=== PATIENT | female | born 1975 | race Hispanic/Latino ===

== ENCOUNTER 2021-09-21 20:21 | Inpatient (IN) | payer SELFPAY ==
[2021-09-21] MEDS ORDERED: Sodium Bicarb 50 MEQ/50 ML Abboject 8.4% SYRINGE ONE (20:32)
[2021-09-21] MEDS ORDERED: Calcium Chloride 1 GM/10 ML Abboject SYRINGE ONE ×2 (20:32→21:10)
[2021-09-21] MEDS ORDERED: EPINEPHrine 1 MG/10 ML Abboject SYRINGE ONE (20:32)
[2021-09-21 21:08] LABS: Actual Bicarbonate (HCO3a) 12.6 mEq/L (22-28); Analyzer IN Cardio ER; Base Excess (BEa) -18.1 mEq/L (-2.0 to +3.0); Calcium, Ionized (arterial) 1.26 mmol/L (1.12-1.30); Carboxyhemoglobin (COHb) 0.3 gm% (0.0-3.0); Potassium - ABG Lab 4.96 mmol/L (3.70-5.30)
[2021-09-21 21:09] LABS: pH, Arterial 6.92 (7.35-7.45)
[2021-09-21 21:10] LABS: CO2 Tension 62.6 mmHg (35.0-45.0); Hemoglobin (Hb) 5.2 g/dL (12.0-16.0); O2 Tension (PaO2), arterial 56.5 mmHg (80.0-100.0); Puncture Site RRA
[2021-09-21 21:12] LABS: Hemoglobin 4.8 g/dL (12.0-16.0); Mean Corpuscular Hemoglobin 26.8 pg (27.0-31.0); Mean Corpuscular Volume 92.6 fL (78.0-98.0); Mean Platelet Volume 7.3 fL (7.4-10.4); Platelet Count 451 thou/uL (130-400); RBC Distribution Width 14.4 % (11.5-14.5)
[2021-09-21] MEDS ORDERED: Sodium Bicarbonate 100 MEQ in Dextrose 5% in Water 1,000 ML IV SCH (21:15)
[2021-09-21 21:19] LABS: Prothrombin Time 44.2 sec (12.0-14.7)
[2021-09-21 21:20] LABS: PTT 74.6 sec (22.9-36.1)
[2021-09-21 21:21] LABS: INR-International Normal Ratio 4.6
[2021-09-21] MEDS ORDERED: Pantoprazole 40 MG VIAL ONE ×2 (21:24→23:38)
[2021-09-21] MEDS ORDERED: Cefepime 2 GM VIAL ONE (21:29)
[2021-09-21 21:31] LABS: Acetaminophen Less than 10.0 mcg/mL (10.0-30.0); Alcohol Less than 10 mg/dL (Less than 10); Lipase 26 U/L (8-78); Salicylate Less than 8.0 mg/dL (15.0-30.0)
[2021-09-21 21:32] LABS: ALT (SGPT) Less than 7 U/L (8-55); AST (SGOT) 22 U/L (5-34); Albumin 1.2 g/dL (3.5-5.0); Alkaline Phosphatase 132 U/L (40-110); Anion Gap 24 mmol/L (10-20); BUN (Urea Nitrogen) 26 mg/dL (7.0-18.7); Bilirubin, Total 0.2 mg/dL (0.2-1.2); Calc. Creatinine Clearance 0 mL/min (70-130); Calcium 7.6 mg/dL (7.8-10.44); Carbon Dioxide 13 mmol/L (22-29); Chloride 107 mmol/L (98-107); Globulin 2.8 g/dL (2.4-3.5); Glucose 123 mg/dL (70-105); Magnesium 3.2 mg/dL (1.6-2.6); Potassium 5.5 mmol/L (3.5-5.1); Sodium 138 mmol/L (136-145)
[2021-09-21 21:34] LABS: Band 33 % (5-11); Hypochromia SLIGHT = 6-15 cells (100X) (0-5/hpf); Lymphocytes 20 % (21-51); MDiff Complete? YES; Metamyelocyte 3 % (0-0); Monocytes 1 % (0-10); Myelocyte 3 % (0-0); Neutrophil 40 % (42-75); Nucleated RBC 3 % (0); Platelet Morphology Comment Appears Increased; Polychromasia MODERATE = 3-4 cells (100X) (0-2/hpf); Reflex for Review?? YES
[2021-09-21 21:37] LABS: BHCG - Serum Negative (NEGATIVE); Pregs Control Background? CLEAR/WHITE (CLR/WHITE); Pregs Control Bar Appear? YES (CONTROL BAR)
[2021-09-21 21:44] LABS: White Blood Cell (WBC) Count 40.4 thou/uL (4.8-10.8)
[2021-09-21 22:09] LABS: SARS-CoV-2 NAA Rapid Test Not Detected (NotDetected)
[2021-09-21] MEDS ORDERED: Dextrose 50% Abboject 50 ML SYRINGE SLOW IVP PRN (22:46)
[2021-09-21] MEDS ORDERED: HumaLOG 300 UNITS/3 ML VIAL SC PRN ×2 (22:46)
[2021-09-21] MEDS ORDERED: Dextrose 5% in Water 1,000 ML IV PRN (22:46)
[2021-09-21] MEDS ORDERED: Electrolyte Replacement Protocol 1 EACH IVPB ONE (22:46)
[2021-09-21] MEDS ORDERED: Electrolyte Replacement Protocol FS PRN (23:00)
[2021-09-21] MEDS ORDERED: VANCOMYCIN 2 GRAM/500 ML BAG 2 GM in Premix Bag 1 BAG IVPB SCH (23:00)
[2021-09-21] MEDS ORDERED: Ventilator Sedation Protocol 1 EACH FS SCH (23:00)
[2021-09-21] MEDS ORDERED: Propofol BOLUS 1,000 MG/100 ML VIAL IV PRN (23:00)
[2021-09-21] MEDS ORDERED: Fentanyl BOLUS 250 ML IVPB PRN (23:00)
[2021-09-21] MEDS ORDERED: fentaNYL Citrate-0.9 % NaCl/PF 100 ML IV SCH (23:00)
[2021-09-21] MEDS ORDERED: Morphine 2 MG/ML VIAL SLOW IVP PRN (23:00)
[2021-09-21] MEDS ORDERED: Propofol 1,000 MG/100 ML VIAL IV PRN (23:00)
[2021-09-21] MEDS ORDERED: EPINEPHrine 4 MG in Dextrose 5% in Water 250 ML IVPB SCH (23:00)
[2021-09-21] MEDS ORDERED: DISCONTINUE PREVIOUS NARCOTIC PAIN MEDICATIONS AND BENZODIAZEPINES FS SCH (23:00)
[2021-09-21] MEDS ORDERED: Lorazepam 2 MG/ML VIAL SLOW IVP PRN (23:00)
[2021-09-21] MEDS ORDERED: Octreotide Acetate 500 MCG/ML VIAL ONE (23:38)
[2021-09-21] MEDS ORDERED: Octreotide Acetate 1,250 MCG in Sodium Chloride 0.9% 250 ML 250 ML IVPB SCH (23:45)
[2021-09-22] MEDS ORDERED: Pantoprazole 80 MG in Sodium Chloride 0.9% 100 ML IVPB SCH (01:00)
[2021-09-22 01:01] LABS: Hemoglobin 11.5 g/dL (12.0-16.0)
[2021-09-22] MEDS ORDERED: EPINEPHrine 1 MG/10 ML Abboject SYRINGE ONE (01:10)
[2021-09-22] MEDS ORDERED: Midazolam HCl 5 mg/ml Vial ONE (01:13)
[2021-09-22 01:17] LABS: Lactic Acid 12.1 mmol/L (0.5-2.2)
[2021-09-22] MEDS ORDERED: Norepinephrine 4 MG/4 ML VIAL ONE (02:35)
[2021-09-22] MEDS ORDERED: Norepinephrine 8 MG/0.9% NS 250 ML IVPB SCH (02:45)
[2021-09-22] MEDS ORDERED: Cefepime 2 GM in Sodium Chloride 0.9% 100 ML IVPB SCH (09:00)
[2021-09-22] MEDS ORDERED: Pantoprazole 40 MG VIAL IVP SCH (09:00)
[2021-09-22] MEDS ORDERED: Vancomycin 1 GM in Premix Bag 1 BAG IVPB SCH (11:00)
== END 2021-09-22 02:49 | disposition expired | DRG 377 ==
LOC: ERS 20:21 → CCU 22:45
PROVIDERS: ADMIT Emergency Medicine; ATTEND Emergency Medicine
PROC: 5A1935Z Respiratory Ventilation, Less than 24 Consecutive Hours (ICD-10-PCS; principal; 2021-09-21)
PROC: 0D9670Z Drainage of Stomach with Drainage Device, Via Natural or Artificial Opening (ICD-10-PCS; 2021-09-21)
PROC: 3E033XZ Introduction of Vasopressor into Peripheral Vein, Percutaneous Approach (ICD-10-PCS; 2021-09-21)
PROC: 30233K1 Transfusion of Nonautologous Frozen Plasma into Peripheral Vein, Percutaneous Approach (ICD-10-PCS; 2021-09-21)
PROC: 30233N1 Transfusion of Nonautologous Red Blood Cells into Peripheral Vein, Percutaneous Approach (ICD-10-PCS; 2021-09-21)
PROC: 5A12012 Performance of Cardiac Output, Single, Manual (ICD-10-PCS; 2021-09-22)
PROC: 0W3P8ZZ Control Bleeding in Gastrointestinal Tract, Via Natural or Artificial Opening Endoscopic (ICD-10-PCS; 2021-09-22)
DX: K29.71 Gastritis, unspecified, with bleeding (principal); J96.01 Acute respiratory failure with hypoxia; K61.1 Rectal abscess; D62 Acute posthemorrhagic anemia; K26.4 Chronic or unspecified duodenal ulcer with hemorrhage; I95.9 Hypotension, unspecified; Z66 Do not resuscitate; K22.11 Ulcer of esophagus with bleeding; Z20.822 Contact with and (suspected) exposure to COVID-19; R00.1 Bradycardia, unspecified; E11.9 Type 2 diabetes mellitus without complications; R57.8 Other shock; I10 Essential (primary) hypertension; K21.9 Gastro-esophageal reflux disease without esophagitis; R57.1 Hypovolemic shock; I46.9 Cardiac arrest, cause unspecified; R79.1 Abnormal coagulation profile; Z98.891 History of uterine scar from previous surgery
CPT/HCPCS: 31500; 36430; 36600; 71045; 80053; 80307; 82805; 83605; 83690; 83735; 84145; 84703; 85014; 85018; 85025; 85060; 85610; 86850; 86900; 86901; 94002; 94003; C1776; C9113; J0171; J0692; J2250; J2354; J3370; J7050; J7070; P9016; P9048; P9059; U0002